=== PATIENT | male | born 1965 | race Caucasian/White ===

== ENCOUNTER 2016-12-17 10:31 | Emergency (ER) | payer OTHER ==
[~2016-12-17] VITALS: Ht 193 cm; Wt 118.2 kg
[~2016-12-17 10:31] MED LIST: ALLOPURINOL300 MG PO; ASPIRIN325 MG PO; DOXYCYCLINE MO100 M1 PO; FOLIC ACID0.8 MG PO; MAALOX MAXIMUM355 ML PO; TYLENOL EXTRA500 MG PO; TYLENOL REGULA325 MG PO; VIAGRA100 MG PO; VITAMIN B-121000 MCG PO
[2016-12-17 11:38] LABS: HEMATOCRIT 45.2 % (38.0-50.0); MCH 31.4 PG (29.0-34.0); MCHC 35.4 G/DL (30.0-36.0); MCV 88.8 FL (86-99); MEAN PLAT.VOLUME 9.6 uM^3 (9.0-12.4); PLATELET COUNT 156 K/uL (156-360); RBC DIS.WIDTH-CV 12.3 % (11.8-14.6); RBC DIS.WIDTH-SD 40.6 % (39-53); RED BLOOD COUNT 5.09 M/uL (4.00-5.50); WHITE BLOOD COUNT 4.2 K/uL (4.1-10.2)
[2016-12-17 11:48] LABS: CHLORIDE 106 mEq/L (99-109); POTASSIUM 4.1 mEq/L (3.7-5.4); SODIUM 142 mEq/L (136-147)
[2016-12-17 11:50] LABS: GLUCOSE 145 mg/dL (70-99)
[2016-12-17 11:51] LABS: ANION GAP 11 MEQ/L (2-14)
[2016-12-17 11:54] LABS: GFR ESTIMATE (CALCULATED) > 59 mL/min/
[2016-12-17 11:55] LABS: UREA NITROGEN (BUN) 11 mg/dL (9-23)
[2016-12-17] MEDS ORDERED: PREDNISONE20 MG PO (12:11)
[2016-12-17] MEDS ORDERED: VENTOLIN HFA18 GM IH (12:11)
[2016-12-17 13:21] VITALS: BP 135/96
== END 2016-12-17 13:21 | disposition home or self-care (01) ==
LOC: EME 10:31
DX: J20.9 Acute bronchitis, unspecified (principal); Z85.118 Personal history of other malignant neoplasm of bronchus and lung
CPT/HCPCS: 71020; 80048; 85027; 99281; 99282